=== PATIENT | male | born 1940 | race Caucasian/White ===

== ENCOUNTER 2021-12-21 09:13 | Day surgery (SDC) | payer MEDICARE, OTHER, SELFPAY ==
[2021-12-15 15:47] VITALS: BMI 25.5
--- NOTE | 2021-12-18 08:42 | MHC.SHP ---
Pre-Procedural Eval Section A Date of Service: 12/18/21 The patient is an INPATIENT: No Changes since office visit: No Cold of Flu in the past 2 weeks, No New Medical Problems, No Changes in Medication and No Patient answered all questions The History & Physical has been completed within 30 days and I have reviewed it.: Yes Section B Chief Complaint: cataract left eye Allergies: Allergies Allergy/AdvReac Type Severity Reaction Status Date / Time Sulfa (Sulfonamide Allergy Unknown Rash Verified 12/15/21 15:46 Antibiotics) Plan Diagnosis/Plan: Unchanged I have reviewed the history and physical and performed a pertinent physical examination on my patient. No changes have occurred unless specified.
--- NOTE | 2021-12-18 10:24 | HO.ANESPROP2 ---
Documented by User: Amparo Stevenson NP 12/18/21 10:26 HPI - Anesthesia Eval Consult details Narrative: 81yo M for Left Cataract Extraction IOL Insertion PCP cleared No previous cataract on record ICD in situ - interr 07/2021 on chart [facility] Past Medical History Medical History Ambulates with cane Cataract COPD (chronic obstructive pulmonary disease) CVD (cardiovascular disease) Diabetes Elevated cholesterol History of blood transfusion HTN (hypertension) Hx of bladder cancer Hx of renal calculi Myocardial infarction Pacemaker PVD (peripheral vascular disease) Surgical History Surgical History AICD (automatic cardioverter/defibrillator) present History of AAA (abdominal aortic aneurysm) repair History of hip surgery Hx of colonoscopy Hx of cystoscopy Social History Social History Are you a primary school childcare attendant to a significant other at home: No Do you presently have visiting nurse or other home services: No Patient Tobacco Use Status: Current someday Tobacco user Tobacco use type: Cigarette Cigarettes Per Day: 1 Use of substances other than those prescribed or required for medical reasons: No Have you been hit, kicked, punched, or otherwise hurt by someone within the past year? If so, by whom?: No Are you DNR?: No Advance Directives: No Advance Directives Information Provided: Yes Advance Directives on File: No Recently lost weight without trying: No Nutrition Risks: Surgical patient >75years Poor oral hygiene: No Meds Allergies Allergy/AdvReac Type Severity Reaction Status Date / Time Sulfa (Sulfonamide Allergy Unknown Rash Verified 12/21/21 09:57 Antibiotics) Home Medications Medication Instructions Recorded Confirmed Last Taken Type albuterol sulfate 90 mcg/actuation 2 puff INHALATION Q4-6H PRN 12/15/21 12/15/21 Unknown History aerosol inhaler cholecalciferol (vitamin D3) 25 25 mcg PO DAILY 12/15/21 12/15/21 Unknown History mcg (1,000 unit) tablet (Vitamin D3) fluticasone 250 mcg-salmeterol 50 1 puff INHALATION BID 12/15/21 12/15/21 Unknown History mcg/dose blistr powdr for inhalation (Advair Diskus) losartan 50 mg tablet 1 tab PO DAILY 12/15/21 12/15/21 Unknown History metformin 500 mg tablet,extended 1 tab PO BID 12/15/21 12/15/21 Unknown History release 24 hr metoprolol succinate 25 mg 1 tab PO DAILY 12/15/21 12/21/21 12/21/21 06:00 History tablet,extended release 24 hr multivitamin 1 tab PO DAILY 12/15/21 12/15/21 Unknown History nitroglycerin 0.4 mg sublingual 0.4 mg SUBLINGUAL .Q5MIN PRN 12/15/21 12/15/21 Unknown History tablet rosuvastatin 40 mg tablet 1 tab PO DAILY 12/15/21 12/15/21 Unknown History spironolactone 25 mg tablet 1 tab PO DAILY 12/15/21 12/15/21 Unknown History warfarin 4 mg tablet 1 tab PO DAILY 12/15/21 12/15/21 Unknown History Exam Exam Date and Time: December 18, 2021 1024 Height,Weight and Vital Signs: Height 5 ft 10 in Weight 80.739 kg Assessment and Plan Assessment Anesthesia Assessment: Chart Reviewed Documented by User: Amy Huynh MD 12/21/21 10:19 [facility] Past Medical History Medical History Ambulates with cane Cataract COPD (chronic obstructive pulmonary disease) CVD (cardiovascular disease) Diabetes Elevated cholesterol History of blood transfusion HTN (hypertension) Hx of bladder cancer Hx of renal calculi Myocardial infarction Pacemaker PVD (peripheral vascular disease) Surgical History Surgical History AICD (automatic cardioverter/defibrillator) present History of AAA (abdominal aortic aneurysm) repair History of hip surgery Hx of colonoscopy Hx of cystoscopy History of Problems with Anesthesia: No Social History Social History Are you a primary school childcare attendant to a significant other at home: No Do you presently have visiting nurse or other home services: No Patient Tobacco Use Status: Current someday Tobacco user Tobacco use type: Cigarette Cigarettes Per Day: 1 Use of substances other than those prescribed or required for medical reasons: No Have you been hit, kicked, punched, or otherwise hurt by someone within the past year? If so, by whom?: No Are you DNR?: No Advance Directives: No Advance Directives Information Provided: Yes Advance Directives on File: No Recently lost weight without trying: No Nutrition Risks: Surgical patient >75years Poor oral hygiene: No Meds Allergies Allergy/AdvReac Type Severity Reaction Status Date / Time Sulfa (Sulfonamide Allergy Unknown Rash Verified 12/21/21 09:57 Antibiotics) Home Medications Medication Instructions Recorded Confirmed Last Taken Type albuterol sulfate 90 mcg/actuation 2 puff INHALATION Q4-6H PRN 12/15/21 12/15/21 Unknown History aerosol inhaler cholecalciferol (vitamin D3) 25 25 mcg PO DAILY 12/15/21 12/15/21 Unknown History mcg (1,000 unit) tablet (Vitamin D3) fluticasone 250 mcg-salmeterol 50 1 puff INHALATION BID 12/15/21 12/15/21 Unknown History mcg/dose blistr powdr for inhalation (Advair Diskus) losartan 50 mg tablet 1 tab PO DAILY 12/15/21 12/15/21 Unknown History metformin 500 mg tablet,extended 1 tab PO BID 12/15/21 12/15/21 Unknown History release 24 hr metoprolol succinate 25 mg 1 tab PO DAILY 12/15/21 12/21/21 12/21/21 06:00 History tablet,extended release 24 hr multivitamin 1 tab PO DAILY 12/15/21 12/15/21 Unknown History nitroglycerin 0.4 mg sublingual 0.4 mg SUBLINGUAL .Q5MIN PRN 12/15/21 12/15/21 Unknown History tablet rosuvastatin 40 mg tablet 1 tab PO DAILY 12/15/21 12/15/21 Unknown History spironolactone 25 mg tablet 1 tab PO DAILY 12/15/21 12/15/21 Unknown History warfarin 4 mg tablet 1 tab PO DAILY 12/15/21 12/15/21 Unknown History Exam Airway Mallampati Class: III TM Dist: >3cm Neck ROM: Full Loose/Missing/Broken Teeth: Yes, Upper and Lower Heart: RRR Lungs: CTA Assessment and Plan Assessment Anesthesia Assessment: Anesthesia Plan Discussed Final Anesthetic Review History of Problems with Anesthesia: No NPO: Yes ASA Class: III Final Preanesthetic Review: Meds/Allgs Chart Reviewed, Consent Obtained/Reviewed and Anes Risks/Benef Reviewed Patient Risk: Intermediate Procedure Risk: Low Anesthetic Plan Anesthetic Plan: MAC: Disposition: Standard PACU
[2021-12-21 10:08] LABS: Glucose, Whole Blood 124 mg/dL (60-115)
[2021-12-21] MEDS: Tetracaine HCl/PF 0.5% Oph Sol 4 ML DROPS 1 DROP EYE-LEFT (10:08)
[2021-12-21 10:09] VITALS: BP 147/80; PULSE 60; RESP 16; TEMP 37.1; O2SAT 98
[2021-12-21] MEDS: Tropicamide 1 % Ophth Sol 3 ML BTL 1 DROP EYE-LEFT ×3 (10:09→10:21)
[2021-12-21] MEDS: Phenylephrine HCL 2.5% Oph SoL 2 ML BOTTLE 1 DROP EYE-LEFT ×3 (10:13→10:25)
[2021-12-21] MEDS: Lactated Ringers 500 ML 50 ML IV (10:15)
--- NOTE | 2021-12-21 11:21 | HO.PNOPHT ---
Ophthalmology Procedure Procedure Date of Service: 12/21/21 Ophthalmology Viscoelastic: Healon Duet Dual Pack Pro Ophthalmology Lenses: TECNIS [id number] (21.5) Procedure Notes: PREOPERATIVE DIAGNOSIS: Decreased visual acuity left eye secondary to cataract POSTOPERATIVE DIAGNOSIS: Same PROCEDURE: Left cataract extraction with intraocular lens insertion SURGEON: Slim Brower M.D. ANESTHESIA: Topical/MAC ESTIMATED BLOOD LOSS: None COMPLICATIONS: None After obtaining informed consent, the patient was brought to the operation room suite and placed in the supine position. After adequate sedation per anesthesia, topical drops of Tetracaine were given to the left eye. The eye was then prepped and draped in the usual sterile fashion. The operating room microscope was then positioned over the operative eye and a lid speculum placed. A paracentesis was created. Viscoelastic was then instilled into the anterior chamber. A three plane incision was then created temporally, utilizing a 2.85 mm keratome. Capsulotomy forceps were then utilized to create a circular tear capsulotomy. Hydrodissection and hydrodelineation were carried out until adequate mobilization of the nucleus occurred. Phacoemulsification was then utilized to remove the dense central nucleus followed by removal of the cortical material utilizing the automated aspiration irrigation unit. Viscoat elastic was instilled into the posterior capsular bag followed by placement of a posterior chamber intraocular lens without difficulty. The residual Viscoat elastic was then removed utilizing the automated IA machine. The wound was check and found to be watertight. The patient tolerated the procedure well and the lid speculum was removed. Intracameral injection of Vigamox 0.1 mL followed by a subtenon injection of Kenalog-40 0.2 mL were administered. The patient will be seen in the a.m.
[2021-12-21 11:46] VITALS: BP 143/74; PULSE 63; RESP 16; TEMP 36.2; O2SAT 98
== END 2021-12-21 12:00 | disposition home or self-care (01) ==
PROVIDERS: PCP Internal Medicine; Visit Provider Ophthalmology
PROC: (CPT 66985; principal; 2021-12-21 11:40)
DX: H25.12 Age-related nuclear cataract, left eye (principal); H54.7 Unspecified visual loss; I25.10 Atherosclerotic heart disease of native coronary artery without angina pectoris; I25.2 Old myocardial infarction; I10 Essential (primary) hypertension; J44.9 Chronic obstructive pulmonary disease, unspecified; E11.9 Type 2 diabetes mellitus without complications; Z79.84 Long term (current) use of oral hypoglycemic drugs; Z79.51 Long term (current) use of inhaled steroids; Z79.01 Long term (current) use of anticoagulants; Z79.899 Other long term (current) drug therapy; Z88.2 Allergy status to sulfonamides; Z95.810 Presence of automatic (implantable) cardiac defibrillator; F17.210 Nicotine dependence, cigarettes, uncomplicated; Z85.51 Personal history of malignant neoplasm of bladder
CPT/HCPCS: 66984; 82947; J2250; J3010; J3300; V2632

== ENCOUNTER → 2022-11-08 08:08 | Day surgery (SDC) | payer MEDICARE, OTHER, SELFPAY ==
[2022-10-18 09:56] VITALS: BMI 24.0
--- NOTE | 2022-11-03 09:30 | MHC.SHP ---
Pre-Procedural Eval Section A Date of Service: 11/03/22 The patient is an INPATIENT: No Changes since office visit: No Cold of Flu in the past 2 weeks, No New Medical Problems, No Changes in Medication and No Patient answered all questions The History & Physical has been completed within 30 days and I have reviewed it.: Yes Section B Chief Complaint: Age-related nuclear cataract, right eye Allergies: Allergies Allergy/AdvReac Type Severity Reaction Status Date / Time Sulfa (Sulfonamide Allergy Unknown Rash Verified 12/21/21 09:57 Antibiotics) Plan Diagnosis/Plan: Unchanged I have reviewed the history and physical and performed a pertinent physical examination on my patient. No changes have occurred unless specified. Time Spent With Patient Time: Total time managing care of this patient today ____ minutes.
[2022-11-08 09:21] VITALS: BP 128/65; PULSE 60; RESP 16; TEMP 36.3; O2SAT 97
[2022-11-08 09:25] LABS: Glucose, Whole Blood 121 mg/dL (60-115)
[2022-11-08] MEDS: Tetracaine HCl/PF 0.5% Oph Sol 4 ML DROPS 1 DROP EYE-RIGHT (09:25)
[2022-11-08] MEDS: Cyclopentolate 1 % Ophth Sol 2 ML DRPBTL 1 DROP EYE-RIGHT ×3 (09:26→09:42)
[2022-11-08] MEDS: Tropicamide 1 % Ophth Sol 3 ML BTL 1 DROP EYE-RIGHT ×3 (09:28→09:44)
[2022-11-08] MEDS: Ketorolac Tromethamine 0.5% Op 5 ML DROPS 1 DROP EYE-RIGHT ×3 (09:30→09:46)
[2022-11-08] MEDS: Phenylephrine HCL 2.5% Oph SoL 2 ML BOTTLE 1 DROP EYE-RIGHT ×3 (09:32→09:48)
[2022-11-08 09:44] LABS: Prothrombin Time 23.1 SEC (10.0-13.1)
== END ==
PROVIDERS: Anesthesiology; PCP Internal Medicine; Visit Provider Ophthalmology
DX: H25.11 Age-related nuclear cataract, right eye (principal); Z53.09 Procedure and treatment not carried out because of other contraindication; R05.9 Cough, unspecified; Z88.2 Allergy status to sulfonamides
CPT/HCPCS: 36415; 82947; 85610; J3301

== ENCOUNTER 2022-12-06 07:55 | Day surgery (SDC) | payer MEDICARE, OTHER, SELFPAY ==
[2022-11-11 08:21] VITALS: BMI 24.0
--- NOTE | 2022-12-03 09:20 | MHC.SHP ---
Pre-Procedural Eval Section A Date of Service: 12/03/22 The patient is an INPATIENT: No Changes since office visit: No Cold of Flu in the past 2 weeks, No New Medical Problems, No Changes in Medication and No Patient answered all questions The History & Physical has been completed within 30 days and I have reviewed it.: Yes Section B Chief Complaint: Age-related nuclear cataract, right eye Allergies: Allergies Allergy/AdvReac Type Severity Reaction Status Date / Time Sulfa (Sulfonamide Allergy Severe Rash Verified 11/08/22 09:03 Antibiotics) Plan Diagnosis/Plan: Unchanged I have reviewed the history and physical and performed a pertinent physical examination on my patient. No changes have occurred unless specified. Time Spent With Patient Time: Total time managing care of this patient today ____ minutes.
--- NOTE | 2022-12-03 10:24 | P.CONAN_ITS ---
Documented by User: Amparo Stevenson NP 12/03/22 10:28 HPI - Anesthesia Eval Consult details Narrative: 82yo M for Right Cataract Extraction IOL Insertion PCP cleared Left eye 11/2021 with MAC: Fent 50, Midaz 1 Pacer/Defib in situ - interrogation on chart Warfarin for PAF (previously cancelled d/t pulmo issue. Resolved. Follows pulmo and cardiology. Most recent office visit notes on chart.) [facility] Past Medical History Medical History Ambulates with cane Cataract COPD (chronic obstructive pulmonary disease) CVD (cardiovascular disease) Diabetes Elevated cholesterol History of blood transfusion HTN (hypertension) Hx of bladder cancer Hx of renal calculi Myocardial infarction Pacemaker PAF (paroxysmal atrial fibrillation) PVD (peripheral vascular disease) Surgical History Surgical History AICD (automatic cardioverter/defibrillator) present History of AAA (abdominal aortic aneurysm) repair History of hip surgery Hx of cataract extraction Hx of colonoscopy Hx of cystoscopy History of Problems with Anesthesia: No Social History Social History (Updated 10/18/22 @ 09:55 by Smitha Velazquez RN) Are you a primary patient care technician to a significant other at home: No Do you presently have visiting nurse or other home services: No Patient Tobacco Use Status: Former Tobacco user Quit Date: 2019 Tobacco use type: Cigarette Use of substances other than those prescribed or required for medical reasons: No Have you been hit, kicked, punched, or otherwise hurt by someone within the past year? If so, by whom?: No Are you DNR?: No Advance Directives Information Provided: Yes (as above noted) Advance Directives on File: No Recently lost weight without trying: No Eating poorly because of decreased appetite: No Nutrition Risks: No Nutritional Risk Poor oral hygiene: No (upper & lower partials) Meds Allergies Allergy/AdvReac Type Severity Reaction Status Date / Time Sulfa (Sulfonamide Allergy Severe Rash Verified 12/06/22 08:44 Antibiotics) Home Medications Medication Instructions Recorded Confirmed Last Taken Type albuterol sulfate 90 mcg/actuation 2 puff inhalation Q4-6H PRN 12/15/21 11/11/22 12/06/22 History aerosol inhaler Shortness Of Breath Or Wheezing cholecalciferol (vitamin D3) 25 25 mcg PO DAILY 12/15/21 11/11/22 Unknown History mcg (1,000 unit) tablet (Vitamin D3) fluticasone 250 mcg-salmeterol 50 1 puff inhalation BID 12/15/21 11/11/22 Unknown History mcg/dose blistr powdr for inhalation (Advair Diskus) metformin 500 mg tablet,extended 1 tab PO BID 12/15/21 11/11/22 11/07/22 History release 24 hr metoprolol succinate 25 mg 1 tab PO DAILY 12/15/21 11/11/22 12/06/22 History tablet,extended release 24 hr multivitamin 1 tab PO DAILY 12/15/21 11/11/22 Unknown History nitroglycerin 0.4 mg sublingual 0.4 mg sublingual .Q5MIN PRN Chest 12/15/21 11/11/22 Unknown History tablet Pain rosuvastatin 40 mg tablet 1 tab PO DAILY 12/15/21 11/11/22 Unknown History spironolactone 25 mg tablet 1 tab PO DAILY 12/15/21 11/11/22 Unknown History warfarin 4 mg tablet 1 tab PO DAILY 12/15/21 11/11/22 11/07/22 History furosemide 40 mg tablet 1 tab PO DAILY 10/18/22 11/11/22 Unknown History Exam Exam Date and Time: December 03, 2022 1024 Height,Weight and Vital Signs: Height 5 ft 10 in Weight 76.204 kg Assessment and Plan Assessment Anesthesia Assessment: Chart Reviewed Final Anesthetic Review History of Problems with Anesthesia: No Documented by User: Thierno Fairbanks MD 12/06/22 12:34 HPI - Anesthesia Eval Consult details Narrative: 82yo M for Right Cataract Extraction IOL Insertion 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 Resolved. Follows pulmo and cardiology. Most recent office visit notes on chart.) [facility] Past Medical History Medical History Ambulates with cane Cataract COPD (chronic obstructive pulmonary disease) CVD (cardiovascular disease) Diabetes Elevated cholesterol History of blood transfusion HTN (hypertension) Hx of bladder cancer Hx of renal calculi Myocardial infarction Pacemaker PAF (paroxysmal atrial fibrillation) PVD (peripheral vascular disease) Functional capacity: independent ambulation Family History Family history of problems with anesthesia: No Surgical History Surgical History AICD (automatic cardioverter/defibrillator) present History of AAA (abdominal aortic aneurysm) repair History of hip surgery Hx of cataract extraction Hx of colonoscopy Hx of cystoscopy Social History Social History (Updated 10/18/22 @ 09:55 by Smitha Velazquez RN) Are you a primary patient care technician to a significant other at home: No Do you presently have visiting nurse or other home services: No Patient Tobacco Use Status: Former Tobacco user Quit Date: 2019 Tobacco use type: Cigarette Use of substances other than those prescribed or required for medical reasons: No Have you been hit, kicked, punched, or otherwise hurt by someone within the past year? If so, by whom?: No Are you DNR?: No Advance Directives Information Provided: Yes (as above noted) Advance Directives on File: No Recently lost weight without trying: No Eating poorly because of decreased appetite: No Nutrition Risks: No Nutritional Risk Poor oral hygiene: No (upper & lower partials) Meds Allergies Allergy/AdvReac Type Severity Reaction Status Date / Time Sulfa (Sulfonamide Allergy Severe Rash Verified 12/06/22 08:44 Antibiotics) Home Medications Medication Instructions Recorded Confirmed Last Taken Type albuterol sulfate 90 mcg/actuation 2 puff inhalation Q4-6H PRN 12/15/21 11/11/22 12/06/22 History aerosol inhaler Shortness Of Breath Or Wheezing cholecalciferol (vitamin D3) 25 25 mcg PO DAILY 12/15/21 11/11/22 Unknown History mcg (1,000 unit) tablet (Vitamin D3) fluticasone 250 mcg-salmeterol 50 1 puff inhalation BID 12/15/21 11/11/22 Unknown History mcg/dose blistr powdr for inhalation (Advair Diskus) metformin 500 mg tablet,extended 1 tab PO BID 12/15/21 11/11/22 11/07/22 History release 24 hr metoprolol succinate 25 mg 1 tab PO DAILY 12/15/21 11/11/22 12/06/22 History tablet,extended release 24 hr multivitamin 1 tab PO DAILY 12/15/21 11/11/22 Unknown History nitroglycerin 0.4 mg sublingual 0.4 mg sublingual .Q5MIN PRN Chest 12/15/21 11/11/22 Unknown History tablet Pain rosuvastatin 40 mg tablet 1 tab PO DAILY 12/15/21 11/11/22 Unknown History spironolactone 25 mg tablet 1 tab PO DAILY 12/15/21 11/11/22 Unknown History warfarin 4 mg tablet 1 tab PO DAILY 12/15/21 11/11/22 11/07/22 History furosemide 40 mg tablet 1 tab PO DAILY 10/18/22 11/11/22 Unknown History Exam Airway Mallampati Class: III TM Dist: >3cm Neck ROM: Full Loose/Missing/Broken Teeth: Yes (Chipped , poor dentition overall ) Heart: S1,S2 Lungs: diminished breath sounds Assessment and Plan Assessment Anesthesia Assessment: Anesthesia Plan Discussed Final Anesthetic Review Family History of Problems with Anesthesia: No NPO: Yes ASA Class: III Final Preanesthetic Review: Meds/Allgs Chart Reviewed, Consent Obtained/Reviewed and Anes Risks/Benef Reviewed Patient Risk: Intermediate Procedure Risk: Intermediate Anesthetic Plan Anesthetic Plan: MAC: Disposition: Standard PACU
[2022-12-06] MEDS: Tropicamide 1 % Ophth Sol 3 ML BTL 1 DROP EYE-RIGHT ×3 (09:19→09:35)
[2022-12-06] MEDS: Ketorolac Tromethamine 0.5% Op 5 ML DROPS 1 DROP EYE-RIGHT ×2 (09:19→09:28)
[2022-12-06] MEDS: Phenylephrine HCL 2.5% Oph SoL 2 ML BOTTLE 1 DROP EYE-RIGHT ×3 (09:19→09:35)
[2022-12-06] MEDS: Tetracaine HCl/PF 0.5% Oph Sol 4 ML DROPS 1 DROP EYE-RIGHT (09:19)
[2022-12-06] MEDS: Cyclopentolate 1 % Ophth Sol 2 ML DRPBTL 1 DROP EYE-RIGHT ×3 (09:19→09:35)
[2022-12-06] MEDS: Lactated Ringers 500 ML 50 ML IV (09:19)
[2022-12-06 09:28] LABS: Glucose, Whole Blood 106 mg/dL (60-115)
[2022-12-06 09:44] VITALS: BP 136/76; PULSE 60; RESP 18; TEMP 36.6; O2SAT 97
--- NOTE | 2022-12-06 10:27 | HO.PNOPHT ---
Ophthalmology Procedure Procedure Date of Service: 12/06/22 Ophthalmology Viscoelastic: Madison Hobsont Dual Pack Pro Ophthalmology Lenses: TECMILADY [id number] (21) Procedure Notes: PREOPERATIVE DIAGNOSIS: Decreased visual acuity right eye secondary to cataract POSTOPERATIVE DIAGNOSIS: Same PROCEDURE: Right cataract extraction with intraocular lens insertion SURGEON: Slim Brower M.D. ANESTHESIA: Topical/MAC ESTIMATED BLOOD LOSS: None COMPLICATIONS: Zonular Dehiscense After obtaining informed consent, the patient was brought to the operating room suite and placed in the supine position. After adequate sedation per anesthesia, topical drops of Tetracaine were given to the right eye. The eye was then prepped and draped in the usual sterile fashion. The operating room microscope was then positioned over the operative eye and a lid speculum placed. A paracentesis was created. Viscoelastic was then instilled into the anterior chamber. A three plane incision was then created temporally, utilizing a 2.85 mm keratome. Capsulotomy forceps were then utilized to create a circular tear capsulotomy. Hydrodissection and hydrodelineation were carried out until adequate mobilization of the nucleus occurred. Phacoemulsification was then utilized to remove the dense central nucleus followed by removal of the cortical material utilizing the automated aspiration irrigation unit.Zonular dehiscense was noted requiring placent of a 12mm capsular ring Viscoelastic was instilled into the posterior capsular bag followed by placement of a posterior chamber intraocular lens without difficulty. The residual Viscoelastic was then removed utilizing the automated IA machine. The wound was checked and found to be watertight. The patient tolerated the procedure well and the lid speculum was removed. Intracameral injection of Vigamox 0.1 mL followed by a subtenon injection of Kenalog-40 0.2 mL were administered. The patient will be seen in the a.m.
[2022-12-06 11:02] VITALS: BP 138/96; PULSE 60; RESP 18; TEMP 36.8; O2SAT 95
== END 2022-12-06 11:08 | disposition home or self-care (01) ==
LOC: HO.SSS 07:55
PROVIDERS: PCP Internal Medicine; Visit Provider Ophthalmology
PROC: (CPT 66985; principal; 2022-12-06 10:40)
DX: H25.11 Age-related nuclear cataract, right eye (principal); H54.7 Unspecified visual loss; H27.8 Other specified disorders of lens; D31.31 Benign neoplasm of right choroid; I10 Essential (primary) hypertension; E11.36 Type 2 diabetes mellitus with diabetic cataract; I25.10 Atherosclerotic heart disease of native coronary artery without angina pectoris; I25.2 Old myocardial infarction; J44.9 Chronic obstructive pulmonary disease, unspecified; I71.40 Abdominal aortic aneurysm, without rupture, unspecified; I48.19 Other persistent atrial fibrillation; Z95.810 Presence of automatic (implantable) cardiac defibrillator; Z95.0 Presence of cardiac pacemaker; Z79.82 Long term (current) use of aspirin; Z79.01 Long term (current) use of anticoagulants; Z79.51 Long term (current) use of inhaled steroids; Z79.84 Long term (current) use of oral hypoglycemic drugs; Z79.899 Other long term (current) drug therapy; Z88.2 Allergy status to sulfonamides; Z87.891 Personal history of nicotine dependence
CPT/HCPCS: 66982; 82947; J3010; J3301; V2632